=== PATIENT | female | born 1960 | race American Indian/Alaskan Native ===

== ENCOUNTER 2017-01-17 11:36 | Outpatient (CLI) | payer BC ==
--- NOTE | 2017-01-17 14:16 | Mammography Report ---
BILATERAL MAMMOGRAM with CAD: HISTORY: Cancer screening. Comparison study is dated September 30 and October 13, 2015. FINDINGS: There are scattered fibroglandular densities (approximately 25%-50% glandular). No mass, distortion, suspicious calcification, or skin change is seen. IMPRESSION: Negative mammogram. There is no mammographic evidence of malignancy. RECOMMENDATION: Follow-up per ACS guidelines. BI-RADS CATEGORY: 1 = Negative ACR BI-RADS MAMMOGRAPHIC CODES: 0 = Needs additional imaging evaluation; 1 = Negative; 2 = Benign; 3 = Probably benign; 4 = Suspicious; 5 = Malignant; 6 = Known biopsy-proven malignancy COMMENT: 1. Dense breast tissue, i.e., adenosis, fibrocystic changes, etc., may obscure an underlying neoplasm. 2. Approximately 10% of cancers are not detected with mammography. 3. A negative mammography report should not delay biopsy if a clinically suspicious mass is present. COMMENT: Patient follow-up letters are generated in [facility] [employer].
== END 2017-01-17 11:37 | disposition home or self-care (01) ==
LOC: MAMMO 11:36
PROVIDERS: ATTEND Obstetrics & Gynecology
DX: Z12.31 Encounter for screening mammogram for malignant neoplasm of breast (principal)
CPT/HCPCS: 77067; G0202

== ENCOUNTER 2020-06-10 09:02 | Outpatient (CLI) | payer OTHER ==
--- NOTE | 2020-06-10 10:56 | Mammography Report ---
DIGITAL SCREENING MAMMOGRAM WITH CAD, 06/10/2020 INDICATION: Routine screening mammography. TECHNIQUE: Digital bilateral 2D mammography was obtained in the craniocaudal and mediolateral obliq ue projections. This examination was interpreted with the benefit of Computer-Aided Detection analysi s. COMPARISON: 01/17/2017, 10/13/2015 FINDINGS: Breast Density: There are scattered areas of fibroglandular density. There is no evidence of dominant mass, suspicious calcifications or architectural distortion in eithe r breast. IMPRESSION: Follow up recommendation: Routine yearly BI-RADS Category 1: Negative. A "normal" or negative report should not discourage follow up or biopsy of a clinically significant f inding. A written summary of these findings will be mailed to the patient. The patient will be entered into a mammography reporting system which will generate a reminder letter for the patient's next appointmen t at the appropriate interval. The [employer] recommends yearly mammograms starting at age 40 and continuing as l devon as a woman is in good health. Breast MRI is recommended for women with an approximate 20-25% or greater lifetime risk of breast cancer, including women with a strong family history of breast or ova jayda cancer or who have been treated for Hodgkin's disease. Signer Name: Greg Paris MD Signed: 06/10/2020 10:51 AM Workstation Name: [id number]
== END 2020-06-10 09:03 | disposition home or self-care (01) ==
LOC: MAMMO 09:02
PROVIDERS: ATTEND Family Medicine
DX: Z12.31 Encounter for screening mammogram for malignant neoplasm of breast (principal); N64.89 Other specified disorders of breast
CPT/HCPCS: 77067

== ENCOUNTER 2021-09-07 09:11 | Outpatient (CLI) | payer OTHER ==
--- NOTE | 2021-09-07 15:03 | Mammography Report ---
DIGITAL SCREENING MAMMOGRAM WITH CAD, 09/07/2021 CLINICAL INFORMATION / INDICATION: Routine screening mammography. SCREENING MAMMOGRAM TECHNIQUE: Digital bilateral 2D mammography was obtained in the craniocaudal and mediolateral obliqu e projections. This examination was interpreted with the benefit of Computer-Aided Detection analysis . COMPARISON: June 10, 2020, January 17, 2017 FINDINGS: Breast Density: There are scattered areas of fibroglandular density. No dominant mass, suspicious calcifications, or architectural distortion in either breast. IMPRESSION: No mammographic evidence of malignancy. Follow up recommendation: Routine yearly BI-RADS Category 1: Negative. A "normal" or negative report should not discourage follow up or biopsy of a clinically significant f inding. A written summary of these findings will be mailed to the patient. The patient will be entered into a mammography reporting system which will generate a reminder letter for the patient's next appointmen t at the appropriate interval. The [employer] recommends yearly mammograms starting at age 40 and continuing as l devon as a woman is in good health. Breast MRI is recommended for women with an approximate 20-25% or greater lifetime risk of breast cancer, including women with a strong family history of breast or ova jayda cancer or who have been treated for Hodgkin's disease. Signer Name: Tom Rios DO Signed: 09/07/2021 2:59 PM Workstation Name: [id number]
== END 2021-09-07 09:12 | disposition home or self-care (01) ==
LOC: MAMMO 09:11
PROVIDERS: ATTEND Family Medicine
DX: Z12.31 Encounter for screening mammogram for malignant neoplasm of breast (principal)
CPT/HCPCS: 77067

== ENCOUNTER 2022-04-02 08:27 | Emergency (ER) | payer BC, OTHER ==
[2022-04-02] MEDS ORDERED: KETOROLAC 30 MG/1 ML INJ IM ONE (12:11)
--- NOTE | 2022-04-02 12:17 | Emergency Department Report ---
ED Back Pain/Injury HPI - General Chief Complaint: Back Pain/Injury Stated Complaint: BACK PAIN Source: patient Limitations: No Limitations - History of Present Illness Initial Comments: 61-year-old female presents to the ED complaining of back pain x2 weeks. Patient states that she had an x-ray done of her back . Patient states that she was evaluated x2 days ago and was given results of her x-ray imaging and was told that she she had osteoarthritis. Patient was given gabapentin 300 mg without any relief. Denies any dysuria loss of bowel or bladder. Denies any steroids IV drug use. Patient is alert and oriented. Able to move all extremities without difficulty. She is ambulatory. No acute distress noted. No ill appearance noted. MD Complaint: back pain Onset/Timin -: week(s) Similar Symptoms Previously: Yes Place: home Radiation: left leg Severity scale (0 -10): 8 Consistency: intermittent Improves With: none Worsens With: none Associated Symptoms: denies other symptoms - Related Data Previous Rx's Medication Instructions Recorded Last Taken Type Meloxicam [Mobic] 15 mg PO BID 15 Days #30 tab 04/02/22 Unknown Rx predniSONE [Deltasone] 40 mg PO QDAY 5 Days #10 tab 04/02/22 Unknown Rx Allergies Allergy/AdvReac Type Severity Reaction Status Date / Time No Known Allergies Allergy Unverified 09/30/15 09:27 ED Review of Systems ROS: Stated complaint: BACK PAIN Other details as noted in HPI Constitutional: denies: chills, fever Eyes: denies: eye pain, eye discharge, vision change ENT: denies: ear pain, throat pain Respiratory: denies: cough, shortness of breath, wheezing Cardiovascular: denies: chest pain, palpitations Endocrine: no symptoms reported Gastrointestinal: denies: abdominal pain, nausea, diarrhea Genitourinary: denies: urgency, dysuria, discharge Musculoskeletal: back pain. denies: joint swelling, arthralgia Skin: denies: rash, lesions Neurological: denies: headache, weakness, paresthesias Psychiatric: denies: anxiety, depression Hematological/Lymphatic: denies: easy bleeding, easy bruising ED Past Medical Hx - Past Medical History Previous Medical History?: Yes Hx Hypertension: Yes Hx Arthritis: Yes Additional medical history: Back pain - Surgical History Past Surgical History?: Yes Additional Surgical History: Left Achilles Tendon repair - Medications Home Medications: Home Medications Medication Instructions Recorded Confirmed Last Taken Type Meloxicam [Mobic] 15 mg PO BID 15 Days #30 tab 04/02/22 Unknown Rx predniSONE [Deltasone] 40 mg PO QDAY 5 Days #10 tab 04/02/22 Unknown Rx ED Physical Exam - General Limitations: No Limitations General appearance: alert, in no apparent distress - Head Head exam: Present: atraumatic, normocephalic - Eye Eye exam: Present: normal appearance - ENT ENT exam: Present: mucous membranes moist - Neck Neck exam: Present: normal inspection - Respiratory Respiratory exam: Present: normal lung sounds bilaterally. Absent: respiratory distress - Cardiovascular Cardiovascular Exam: Present: regular rate, normal rhythm. Absent: systolic murmur, diastolic murmur, rubs, gallop - GI/Abdominal GI/Abdominal exam: Present: soft, normal bowel sounds - Extremities Exam Extremities exam: Present: normal inspection - Back Exam Back exam: Present: normal inspection, full ROM, tenderness - Neurological Exam Neurological exam: Present: alert, oriented X3 - Psychiatric Psychiatric exam: Present: normal affect, normal mood - Skin Skin exam: Present: warm, dry, intact, normal color. Absent: rash ED Course Vital Signs 04/02/22 08:51 Temperature 98 F Pulse Rate 81 Respiratory 20 Rate Blood Pressure 185/99 [Right] O2 Sat by Pulse 98 Oximetry ED Medical Decision Making - Medical Decision Making 61-year-old female presents to the ED complaining of back pain x2 weeks. Patient states that she had an x-ray done of her back . Patient states that she was evaluated x2 days ago and was given results of her x-ray imaging and was told that she she had osteoarthritis. Patient was given gabapentin 300 mg without any relief. Denies any dysuria loss of bowel or bladder. Denies any steroids IV drug use. Patient is alert and oriented. Able to move all extremities without difficulty. She is ambulatory. No acute distress noted. No ill appearance noted. Rechecked the patient is resting quietly quietly and comfortable and feeling better. I discussed the results of diagnostic study, my clinical impression and the plan for further treatment with the patient. Patient agrees with plan and discharge at this present time. All question addressed. I have given the patient instruction regarding a diagnosis ,expectation ,follow- up and return precaution. I explained to the patient that emergent condition may arise and to return to the ED for new worsen and any new persisting condition. I have explained the importance of following up with the primary care physician or referral physician listed below has instructed. The patient verbalized understanding of discharge instruction. Critical care attestation.: If time is entered above; I have spent that time in minutes in the direct care of this critically ill patient, excluding procedure time. ED Disposition Clinical Impression: Back pain Qualifiers: Back pain location: low back pain Chronicity: unspecified Back pain laterality: bilateral Sciatica presence: with sciatica Sciatica laterality: sciatica of right side Qualified Code(s): M54.41 - Lumbago with sciatica, right side Disposition: HOME / SELF CARE / HOMELESS Is pt being admited?: No Does the pt Need Aspirin: No Condition: Stable Instructions: Acute Back Pain, Adult Additional Instructions: Take medication as prescribed Return to the ED for any worsening symptom Prescriptions: predniSONE [Deltasone] 40 mg PO QDAY 5 Days #10 tab Meloxicam [Mobic] 15 mg PO BID 15 Days #30 tab Referrals: LOUIS SANDOVAL MD [Staff Physician] - 3-5 Days Time of Disposition: 12:21
[2022-04-02 12:30] VITALS: BP 125/68
== END 2022-04-02 12:29 | disposition home or self-care (01) ==
LOC: ED 08:27
DX: M54.9 Dorsalgia, unspecified (principal); I10 Essential (primary) hypertension; M19.90 Unspecified osteoarthritis, unspecified site; Z79.899 Other long term (current) drug therapy
CPT/HCPCS: 96372; 99282; J1885